=== PATIENT | female | born 2000 | race Caucasian/White ===

== ENCOUNTER 2021-02-18 13:53 | Emergency (ER) | payer OTHER, SELFPAY ==
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
[2021-02-18 13:56] VITALS: BP 125/87; PULSE 105; RESP 18; TEMP 36.4; O2SAT 100
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
[2021-02-18 15:38] VITALS: BP 120/83; PULSE 95; RESP 18; O2SAT 100
== END 2021-02-18 15:39 | disposition home or self-care (01) ==
PROVIDERS: Emergency Provider Emergency Medicine; PCP Internal Medicine
DX: S16.1XXA Strain of muscle, fascia and tendon at neck level, initial encounter (principal); V49.40XA Driver injured in collision with unspecified motor vehicles in traffic accident, initial encounter; F17.220 Nicotine dependence, chewing tobacco, uncomplicated
CPT/HCPCS: 72125; 99284

== ENCOUNTER 2022-07-26 12:24 | Outpatient (CLI) | payer BC, SELFPAY ==
[2022-07-26 19:37] LABS: Basophils Absolute Auto 0.1 K/mm3 (0.0-0.1); Basophils Percent Auto 1.4 % (0.2-1.2); Eosinophils Absolute Auto 0.1 K/mm3 (0-0.3); Eosinophils Percent Auto 2.2 % (0-4.4); Hematocrit 42.9 % (37.0-47.0); Hemoglobin 14.4 g/dL (12.0-15.0); Immature Granulocyte Absolute 0.03 K/mm3 (0.00-0.031); Immature Granulocyte Percent A 0.5 % (0-0.5); Mean Corpuscular HGB Conc 33.6 g/dl (32-36); Mean Corpuscular Hemoglobin 31.2 pg (26-34); Mean Corpuscular Volume 93.1 fl (80-100); Mean Platelet Volume 10.2 fl (7.4-10.4); Monocytes Absolute Auto 0.6 K/mm3 (0.1-0.6); Monocytes Percent Auto 8.9 % (2.6-8.5); Neutrophils Absolute Auto 3.3 K/mm3 (1.3-6.7); Platelet Count Result 256 k/mm3 (150-375); Red Blood Count 4.61 M/mm3 (4.2-5.4); Red Cell Distribution Width 13.6 % (11.5-14.5); White Blood Count 6.4 K/mm3 (4.5-10.0)
[2022-07-26 20:07] LABS: Alanine Aminotransferase 33 U/L (6-35); Albumin Level 4.7 g/dL (3.5-5.1); Alkaline Phosphatase 56 U/L (38-126); Anion Gap 16 mmol/L (8-16); Aspartate Amino Transferase 33 U/L (14-36); Bilirubin,Total 0.3 mg/dL (0.2-1.3); Blood Urea Nitrogen 9 mg/dL (7-17); Calcium 9.3 mg/dL (8.4-10.2); Carbon Dioxide 19 mmol/L (22-30); Chloride 106 mmol/L (98-107); Estimated Glomerular Filt Rate > 60; Glucose 73 mg/dL (65-110); Potassium 3.8 mmol/L (3.4-5.0); Sodium 141 mmol/L (137-145)
[2022-07-26 20:20] LABS: Erythrocyte Sedimentation Rate 2 mm/hr (0-20)
[2022-07-26 20:38] LABS: Thyroid Stimulating Hormone 0.965 uIU/mL (0.465-4.680)
== END 2022-07-26 12:25 | disposition home or self-care (01) ==
LOC: ANHGOSHLAB 12:26
PROVIDERS: PCP Internal Medicine; Visit Provider Internal Medicine
DX: R53.83 Other fatigue (principal); R63.4 Abnormal weight loss
CPT/HCPCS: 36415; 80053; 84443; 85025; 85652

== ENCOUNTER 2022-08-16 07:48 | Outpatient (CLI) | payer BC, SELFPAY ==
--- NOTE | 2022-09-12 15:55 | WPDSLEEPSTUD ---
Sleep Study Date of Study: 08/16/22 Ordering Provider: Cecilio Hyman DO Interpreting Physician: Earlene Parker DO Sleep Study Type: Polysomnogram Height: 1.6 m Weight: 46.72 kg Body Mass Index: 18.2 Neck Circumference (inches): 14.5 [place] Pool: 14 Reason for Sleep Study Unrefreshing sleep, multiple nighttime awakenings, morning headaches Sleep History The patient is a 22 year old female with GERD and tobacco use that had a sleep study ordered by her primary care physician for evaluation of sleep apnea. 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 She frequently awakens from sleep short of breath. She rarely awakens at night with heartburn, belching or cough. She denies snoring loud enough that others complain. She constantly has trouble sleeping when she has a cold. She occasionally wakes up gasping for air throughout the night. She frequently has breathing problems at night observed by herself or others. She rarely sweats excessively at night. He rarely has heart palpitations or irregular heartbeats during the night. She occasionally falls asleep during the day but never while driving. She rarely experiences loss of muscle tone when extremely emotional. She frequently has trouble at school or work due to sleepiness. She denies feeling unable to move while waking up or falling asleep. She constantly experiences vivid dreamlike scenes upon awakening or falling asleep. She denies feeling afraid of going to sleep. She denies having nightmares. She constantly remembers her dreams. She constantly has thoughts racing through her mind. She occasionally feels sad, depressed or anxious. She rarely has muscular tension. She occasionally notices parts of her body jerk. She occasionally kicks during the night. She frequently has crawling and aching feelings in her legs and occasionally has leg pain during the night. She rarely grinds her teeth during sleep but never awakens with morning jaw pain. She is rarely bothered by pain during the day and never awakened by pain during the night. She frequently wakes up feeling stiff in the morning. She frequently wakes up with sore or achy muscles. He frequently wakes up with pain in the neck, spine or other joints. She goes to bed at 11:00 p.m. on weekdays and at 1:00 a.m. on the weekends. It takes her 30 minutes to fall asleep. She wakes up once throughout the night. When she awakens, she will watch television. It takes her 1 hour to fall back asleep. She wakes up at 8:00 a.m. on both weekdays and weekends. She typically gets 8 hours of sleep per night. She does not consume any caffeinated beverages within 2 hours of bedtime. She does not engage in physical exercise before bedtime. She will watch television before falling asleep. She will take naps in the afternoon or the evening but they are not refreshing. She does occasionally use tobacco products. She does consume caffeinated beverages throughout the day. She does use marijuana. [facility] Social History Social History Smoking status: Current some day smoker Tobacco type: smokeless tobacco Smokeless tobacco user: other Alcohol intake: never Medications Home Medications Medication Instructions Recorded Confirmed Type No Home Medications 07/26/22 07/26/22 History Sleep Procedure This test was performed using the [employer]Works multiple channel system including EOG, EEG, submental EMG, EKG, nasal and oral airflow using thermistors and nasal pressure sensors, chest and abdominal belts for body position data, and pulse oximetry. Video monitoring was also performed. The study was scored using [facility] guidelines. Sleep Architecture The patient had a total recording time of 469.2 minutes and total sleep time of 360 minutes. The sleep efficiency was 76.7%. Sleep latency was 26.2 minutes and REM latency was 104 minutes. The patient had 35 awakenings. The patient spen
[2022-09-12 16:05] VITALS: BMI 18.2
== END 2022-08-17 05:28 | disposition home or self-care (01) ==
PROVIDERS: PCP Internal Medicine; Visit Provider Internal Medicine
DX: G47.00 Insomnia, unspecified (principal); G47.10 Hypersomnia, unspecified
CPT/HCPCS: 95810

== ENCOUNTER 2024-01-13 13:00 | Emergency (ER) | payer BC, SELFPAY ==
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
[2024-01-13 13:02] VITALS: BP 121/70; PULSE 70; RESP 16; TEMP 36.6; O2SAT 100
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
[2024-01-13 14:00] VITALS: RESP 14; O2SAT 99
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
== END 2024-01-13 15:22 | disposition home or self-care (01) ==
PROVIDERS: Emergency Provider Emergency Medicine; PCP Internal Medicine
DX: S05.12XA Contusion of eyeball and orbital tissues, left eye, initial encounter (principal); S60.212A Contusion of left wrist, initial encounter; S60.211A Contusion of right wrist, initial encounter; S80.02XA Contusion of left knee, initial encounter; S80.01XA Contusion of right knee, initial encounter; S40.012A Contusion of left shoulder, initial encounter; Y35.813A Legal intervention involving manhandling, suspect injured, initial encounter; F17.290 Nicotine dependence, other tobacco product, uncomplicated
CPT/HCPCS: 70450; 70486; 73100; 99284